=== PATIENT | female | born 2000 | race Caucasian/White ===

== ENCOUNTER 2023-10-14 20:26 | Emergency (ER) | payer OTHER, SELFPAY ==
[2023-10-14 20:30] VITALS: BP 130/88
--- NOTE | 2023-10-14 21:23 | ED.GENMED ---
History of Present Illness
General
Chief Complaint: Skin Surface Trauma
Source: patient
Exam Limitations: none
Time Seen by Provider: 10/14/23 20:51
Nursing documentation reviewed up to this point in time: agreed with
Travel History
Have you had any contact with someone who has COVID-19?: No
Do you have any symptoms of coronavirus? Fever > 100 degrees, chills, cough, shortness of breath, sore throat, loss of taste or smell, muscle aches, or headache?: No
History of Present Illness
History of Present Illness:
Partially avulsed left thumbnail while playing frisbee. Incident occurred tonight. Brought to ED by family
Past History
Past History
ED Past Medical History: None
Review of Systems
Review of Systems
Allergies reviewed?: Yes
All Other Systems: ROS reviewed and negative except as documented in HPI and ROS
Constitutional: Reports no symptoms
Musculoskeletal: Reports no symptoms
Skin: Reports other (partially avulsed left thumbnail)
Neurological: Reports no symptoms
Psychiatric: Reports no symptoms
Phy Exam
General Physical Exam
General Presentation: well appearing and no apparent distress
General age: appears stated age
General Skin: warm and dry
General Habitus: normal
General Mental: alert
Musculoskeletal Exam
Musculoskeletal Exam: full ROM and neuro vasc intact
Skin Exam
Skin Exam: normal color, warm/dry, no rash and other (Partially avulsed left thumbnail. Digital block with lidocaine 1%. Nail repositioned. Steristrips applied. )
Psychiatric Exam
Psychiatric Exam: normal mood/affect
Course
Vital Signs
Initial and Last Documented VS:
Initial Vital Signs
Temp Pulse Resp BP Pulse Ox
98.1 F 78 19 130/88 100
10/14/23 20:30 10/14/23 20:30 10/14/23 20:30 10/14/23 20:30 10/14/23 20:30
Last Documented Vital Signs
Temp Pulse Resp BP Pulse Ox
98.1 F 78 19 130/88 100
10/14/23 20:30 10/14/23 20:30 10/14/23 20:30 10/14/23 20:30 10/14/23 20:30
*Critical Care Note
Total Time (30-74mins, 75-104mins- exclusive of procedures): Not Applicable
ED Attending Note
-
Portions of this chart may have been created with voice recognition software.� Occasional wrong word or��sound alike� substitutions may have occurred due to the inherent limitations of voice recognition software.
Discharge Plan
Departure
Patient Disposition: Home (Routine Discharge)
Date of Disposition: 10/14/23
Time of Disposition: 21:21
Patient with high blood pressure during this ER visit?: No
Condition: Good
Covid-19: Not Applicable
Discharge Problem:
Avulsed fingernail
Instructions: Nail Avulsion (DC)
Referrals:
Néstor Eldridge MD [Family Provider] - Follow up in 2-3 days
Activity Restrictions/Additional Instructions:
Your nail will eventually fall off as a new nail grows in.
Interventions
Interventions:
*Risk Screen - Suicide Last Done: 10/14/23 20:30
*General Assessment Last Done: 10/14/23 20:30
*Neglect/Abuse Screening Last Done: 10/14/23 20:30
*ED COVID-19 Vaccine History Last Done: 10/14/23 20:30
ED-Skin Assessment Last Done: 10/14/23 20:43
Discharge Date and Time
Print Language: [email or web address]
== END 2023-10-14 21:48 | disposition home or self-care (01) ==
LOC: EMR 20:26
PROVIDERS: EMERGENCY PHYSICIAN Emergency Medicine; FAMILY PHYSICIAN Family Medicine
DX: S61.102A Unspecified open wound of left thumb with damage to nail, initial encounter (principal); W20.8XXA Other cause of strike by thrown, projected or falling object, initial encounter
CPT/HCPCS: 64450; 99284